=== PATIENT | male | born 1970 ===

== ENCOUNTER 2022-05-19 18:29 | Emergency (ER) | payer MEDICARE ==
[2022-05-19 18:47] VITALS: BP 110/80
--- NOTE | 2022-05-19 19:14 | Emergency Department Report ---
<JACQUEILN MUNOZ - Last Filed: 06/20/22 02:33> ED Headache HPI - General Chief Complaint: Headache Stated Complaint: HEADACHE Time Seen by Provider: 05/19/22 19:06 - History of Present Illness Initial Comments: 51-year-old male with developmental delay presents emergency department via EMS reports the family advised him that the patient was just diagnosed with COVID-19 and was complaining of headache last night he continued to complain today so they called EMS to transport emergency department so he can have his headache evaluated. He reports no nausea, no vomiting, no fever. Quality: moderate Associated Symptoms: denies: facial pain, fever/chills, nausea/vomiting, nasal congestion, nasal drainage, sinus infection, stiff neck, vision changes, weakness Allergies/Adverse Reactions: Allergies No Known Allergies Allergy (Unverified 05/20/22 00:39) Home Medications: Ambulatory Orders Butalb/Acetaminophen/Caffeine [Fioricet 50-300-40 mg CAP] 1 cap PO Q8HR PRN #20 cap 05/19/22 ED Review of Systems Comment: All other systems reviewed and negative ED Past Medical Hx - Medications Home Medications: Home Medications Medication Instructions Recorded Confirmed Last Taken Type Butalb/Acetaminophen/Caffeine 1 cap PO Q8HR PRN #20 cap 05/19/22 Unknown Rx [Fioricet 50-300-40 mg CAP] ED Physical Exam - General Limitations: Other General appearance: alert, in no apparent distress - Head Head exam: Present: atraumatic, normocephalic - Eye Eye exam: Present: normal appearance, PERRL, EOMI Pupils: Present: other (Negative funduscopic examination) - ENT ENT exam: Present: normal exam, mucous membranes moist - Neck Neck exam: Present: normal inspection, full ROM. Absent: meningismus - Respiratory Respiratory exam: Present: normal lung sounds bilaterally. Absent: respiratory distress, rhonchi, chest wall tenderness, accessory muscle use, decreased breath sounds - Cardiovascular Cardiovascular Exam: Present: regular rate, normal rhythm. Absent: systolic murmur, diastolic murmur, rubs, gallop - GI/Abdominal GI/Abdominal exam: Present: soft, normal bowel sounds - Rectal Rectal exam: Present: deferred - Extremities Exam Extremities exam: Present: normal inspection - Back Exam Back exam: Present: normal inspection - Neurological Exam Neurological exam: Present: alert, oriented X3 - Psychiatric Psychiatric exam: Present: normal affect, normal mood - Skin Skin exam: Present: warm, dry, intact, normal color. Absent: rash ED Medical Decision Making - Radiology Data Radiology results: report reviewed, image reviewed This patient presents with a headache most consistent with tension findings. Presentation not consistent with acute intracranial bleed to include SAH (lack of risk factors, headache history). Presentation not consistent with acute SLAB GRINDER infection to include meningitis or brain abscess, Temporal arteritis unlikely, as is acute angle closure glaucoma given history and physical findings. Presentation not consistent with other acute, emergent causes of headache at this time. Plan to treat symptomatically with pain medication. No indication for imaging/LP at this time. Plan: pain medication, CT brain serial reassessment ED Disposition Clinical Impression: Headache Disposition: 01 HOME / SELF CARE / HOMELESS Is pt being admited?: No Does the pt Need Aspirin: No Condition: Stable Instructions: Acetaminophen; Caffeine tablets, Spinal Headache, Tension Headache, Adult, [id number], Headache, Pediatric Prescriptions: Butalb/Acetaminophen/Caffeine [Fioricet 50-300-40 mg CAP] 1 cap PO Q8HR PRN #20 cap PRN Reason: headache Referrals: KATHERINE HUGHES MD [Staff Physician] - 3-5 Days <ALLISON JOHN - Last Filed: 07/07/22 22:50> ED Review of Systems ROS: Stated complaint: HEADACHE Other details as noted in HPI ED Course Vital Signs 05/19/22 18:43 Temperature 97.6 F Pulse Rate 76 Respiratory 16 Rate Blood Pressure 110/80 [Left] O2 Sat by Pulse 96 Oximetry Critical care attestation.: If time is entered above; I have spent that time in minutes in the direct care of this critically ill patient, excluding procedure time. ED Disposition Is pt being admited?: No Does the pt Need Aspirin: No
--- NOTE | 2022-05-19 20:49 | Cat Scan Report ---
NONENHANCED CT SCAN OF THE HEAD: INDICATION / CLINICAL INFORMATION: 51 years Male; headache. TECHNIQUE: Routine CT head without contrast. All CT scans at this location are performed using CT dos e reduction for ALARA by means of automated exposure control. COMPARISON: None. FINDINGS: BRAIN / INTRACRANIAL CONTENTS: No acute hemorrhage, mass effect, midline shift, hydrocephalus, or acu te, large territorial infarct. No chronic infarct or focal atrophy. Normal brain volume and ventricul ar/sulcal size for age. No significant white matter abnormality. 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 SINUSES / MASTOIDS: No significant abnormality of the visualized paranasal sinuses or mastoid air jonathan ls. ADDITIONAL FINDINGS: None. IMPRESSION: No acute focal parenchymal lesion Signer Name: Zuhair Tang MD Signed: 05/19/2022 8:44 PM Workstation Name: [id number]
== END 2022-05-19 22:00 | disposition home or self-care (01) ==
LOC: ED 18:29
DX: R51.9 Headache, unspecified (principal)
CPT/HCPCS: 70450; 99284